=== PATIENT | female | born 1995 | race Caucasian/White ===

== ENCOUNTER 2016-06-17 20:38 | Emergency (ER) | payer BC, MEDICAID ==
--- NOTE | ~2016-06-17 | ER ---
PATIENT'S NAME: YO LEIGH [facility] AGE: 20 Y [address] ROOM: [place] [id number] LOCATION: [facility] ADMIT DATE: 06/17/2016 ER/Outpatient Report DISCHARGE DATE: 06/17/2016 FAMILY PHYSICIAN: Bg Gutierrez MD ATTENDING PHYSICIAN: Ervin Chou Admission date and time documented on the medical record. I saw the patient at 2100 hours. CHIEF COMPLAINT: Medical clearance for [facility]. HISTORY OF PRESENT ILLNESS: This patient is a 20-year-old female, who was brought here to the emergency room by [facility] for medical clearance for [facility]. The patient is apparently having homicidal ideation. She is EPC'd. Came here for medical clearance. No recent cough, colds, flus, fever, chills, or sweats. No chest pain, shortness of breath. No abdominal pain, nausea, vomiting, diarrhea. No urinary symptoms. No neuro changes. No endocrine problems. HOME MEDICATIONS: See attached medication list. ALLERGIES: LEVAQUIN. SOCIAL HISTORY: Nonsmoker and nondrinker. SIGNIFICANT PAST MEDICAL HISTORY: Behavioral problems, homicidal ideation. OPERATIONS: None. REVIEW OF SYSTEMS: All systems reviewed by me are negative with the exception of those discussed in the history of present illness. PHYSICAL EXAMINATION: VITAL SIGNS: Temperature 98.9, pulse 95, respirations 16, blood pressure 113/75, O2 saturation on room air is 98%. HEAD: Normocephalic. EYES, EARS, NOSE, THROAT: Clear. Mucous membranes moist. Teeth, jaw intact. PATIENT'S NAME: YO LEIGH [facility] AGE: 20 Y [address] ROOM: [place], [place] [address] LOCATION: [facility] ADMIT DATE: 06/17/2016 ER/Outpatient Report DISCHARGE DATE: 06/17/2016 FAMILY PHYSICIAN: Bg Gutierrez MD ATTENDING PHYSICIAN: Ervin Chou NECK: No nuchal rigidity. No findings of adenopathy. SPINE: Nontender. No deformity. LUNGS: Clear. No rales, rhonchi, or wheezes. HEART: Regular. Pulses are palpable. ABDOMEN: Soft, nondistended, nontender. Good bowel tones. No organomegaly or abnormal mass palpable. EXTREMITIES: No peripheral edema, cyanosis, or deformity. NEUROVASCULAR: Intact. SKIN: Clear. No skin eruptions or rash. LABORATORY DATA: CMS was normal, except for a low potassium of 3.5. Medical blood alcohol was less than 0.01. Acetaminophen, salicylate, and serum levels were normal. Urine drug screen was negative. Urinalysis showed 5-10 whites, 2-5 reds, 2-5 epithelial cells, few bacteria, 4+ mucus per high-powered field, negative nitrites. White count is 11,000, 61 segs, 28 lymphs, 9 monos, 1 eo, 1 baso, hemoglobin was 13.6, hematocrit 42.7, platelet count was 303,000. IMPRESSION: 1. Medical clearance. 2. Homicidal ideation. PLAN: The patient will be EPC'd to [facility]. The patient will be taken to [facility] by [facility]. ERVIN CHOU MD SDS/modl /[id number] d: 06/18/16 0506 t: 06/20/16 1813, OUTPATIENT REPORT
[~2016-06-17 20:38] MED LIST: CATAPRES0.2 MG PO; GEODON40 MG PO; LITHOBID300 MG PO; RISPERDAL0.5 MG PO; TYLENOL/COD#31 TAB PO; TYLENOL325 MG PO; VRAYLAR3 MG PO
[2016-06-17 21:25] LABS: BILIRUBIN URINE NEGATIVE (NEGATIVE); BLOOD URINE 10 /UL (NEGATIVE); GLUCOSE URINE NEGATIVE (NEGATIVE); KETONE URINE NEGATIVE (NEGATIVE); LEUKOCYTES URINE 100 /UL (NEGATIVE); NITRITE URINE NEGATIVE (NEGATIVE); PROTEIN URINE 30 mg/dL (NEGATIVE); SPEC GRAVITY URINE 1.025 (1.003-1.035); UROBILINOGEN URINE NORMAL (NORMAL)
[2016-06-17 21:28] LABS: BASOPHIL # 0.1 K/uL (0.0-0.2); BASOPHIL % 0.7 %; EOSINOPHIL # 0.2 K/uL (0.0-0.5); EOSINOPHIL % 1.4 %; HEMATOCRIT 42.7 % (33.0-46.0); HEMOGLOBIN 13.6 g/dL (11.0-15.0); IMMATURE GRANULOCYTE % 0.4 %; LYMPHOCYTE % 27.5 %; MCH 27.6 pg (27.0-34.0); MCHC 31.9 gm/dL (32.0-36.5); MCV 86.8 fl (83.0-98.0); MONOCYTE % 8.9 %; MPV 9.5 fl (9.4-12.4); NEUTROPHIL # (ANC) 6.7 K/uL (1.8-7.8); NEUTROPHIL % 61.1 %; NRBC % 0 /100WBC (0-0.00); PLATELET COUNT 303 K/uL (150-450); RBC 4.92 M/uL (3.50-5.00); RDW-CV 12.4 % (11.9-14.6)
[2016-06-17 21:30] LABS: BACTERIA URINE FEW (NEGATIVE); COLOR URINE YELLOW (YELLOW); MUCUS URINE 4+ (NEGATIVE); TURBIDITY URINE 4+ (CLEAR)
[2016-06-17 21:42] LABS: AMPHETAMINE NEGATIVE (NEGATIVE); BARBITURATE NEGATIVE (NEGATIVE); COCAINE NEGATIVE (NEGATIVE); OPIATES NEGATIVE (NEGATIVE)
[2016-06-17 21:49] LABS: ALBUMIN 4.3 gm/dL (3.5-5.0); ALK PHOS 73 IU/L (33-138); ALT 21 IU/L (12-78); ANION GAP 14.5 (10.0-19.0); AST 12 IU/L (10-40); BLOOD UREA NITROGEN 15 mg/dL (6-24); CALCIUM 8.5 mg/dL (8.5-10.5); CHLORIDE 107 mMol/L (96-110); CO2 24 mMol/L (22-32); CREATININE 0.8 mg/dL (0.5-1.1); ESTIMATED GFR (MDRD EQUATION) > 60; POTASSIUM 3.5 mMol/L (3.7-5.1); SODIUM 142 mMol/L (135-145); TOTAL BILIRUBIN 0.5 mg/dL (0.0-1.5); TOTAL PROTEIN 7.9 g/dL (6.0-8.4)
== END 2016-06-17 22:16 | disposition disaster alternative care site (69) ==
LOC: GMED 20:38
PROVIDERS: Emergency Medicine
DX: R45.850 Homicidal ideations (principal); Z88.8 Allergy status to other drugs, medicaments and biological substances
CPT/HCPCS: G0480